=== PATIENT | male | born 1960 | race Caucasian/White ===

== ENCOUNTER 2024-02-15 08:16 | Emergency (ER) | payer MEDICAID ==
[~2024-02-15] VITALS: Ht 185.4 cm; Wt 79.5 kg
[2024-02-15 08:19] VITALS: TEMP 97.8
[2024-02-15] MEDS ORDERED: PRED20TA PO (10:01)
[2024-02-15] MEDS ORDERED: PERM60CR19 TOP (10:01)
[2024-02-15] MEDS ORDERED: LISI10TA27 PO (10:03)
[2024-02-15 10:12] VITALS: BP 168/107; PULSE 89; RESP 16; O2SAT 98
== END 2024-02-15 10:14 | disposition home or self-care (01) ==
LOC: ER 08:16
DX: L50.0 Allergic urticaria (principal); B86 Scabies; Z79.899 Other long term (current) drug therapy
CPT/HCPCS: 99283

== ENCOUNTER 2024-02-25 06:22 | Emergency (ER) | payer MEDICAID ==
[~2024-02-25] VITALS: Ht 185.4 cm; Wt 69.6 kg
[~2024-02-25 06:22] MED LIST: LISI10TA27 PO; PERM60CR19 TOP
[2024-02-25 08:27] VITALS: BP 133/91; PULSE 98; RESP 16; TEMP 98.9; O2SAT 98
== END 2024-02-25 08:28 | disposition home or self-care (01) ==
LOC: ER 06:23
DX: R21 Rash and other nonspecific skin eruption (principal); Z79.899 Other long term (current) drug therapy
CPT/HCPCS: 99281

== ENCOUNTER 2024-07-13 08:24 | Emergency (ER) | payer MEDICAID ==
[~2024-07-13] VITALS: Ht 185.4 cm; Wt 74.2 kg
[~2024-07-13 08:24] MED LIST changes: -PERM60CR19 TOP
[2024-07-13] MEDS ORDERED: LISI10TA27 PO (09:31)
[2024-07-13] MEDS: lisinopril 10 MG tablet PO ONE (09:48)
[2024-07-13 09:50] VITALS: BP 141/101; PULSE 110; RESP 16; TEMP 98; O2SAT 98
== END 2024-07-13 09:51 | disposition home or self-care (01) ==
LOC: ER 08:25
DX: I10 Essential (primary) hypertension (principal); Z76.0 Encounter for issue of repeat prescription
CPT/HCPCS: 99281

== ENCOUNTER 2024-07-22 14:46 | Emergency (ER) | payer MEDICAID ==
[~2024-07-22] VITALS: Ht 185.4 cm; Wt 78.8 kg
[2024-07-22] MEDS: dexamethasone sod phosphate 10mg/ml inj IM STA (20:19)
[2024-07-22] MEDS ORDERED: ALBU8HFA INH (20:21)
[2024-07-22] MEDS ORDERED: PRED20TA PO (20:21)
[2024-07-22] MEDS: ketorolac trometh 30MG/ML vial 30 MG/ML VIAL IM ONE (20:21)
[2024-07-22] MEDS ORDERED: PROM25TA14 PO (20:21)
[2024-07-22 20:30] VITALS: BP 110/72; PULSE 99; RESP 20; TEMP 99; O2SAT 98
== END 2024-07-22 20:32 | disposition home or self-care (01) ==
LOC: ER 14:47
DX: B34.9 Viral infection, unspecified (principal); Z20.822 Contact with and (suspected) exposure to COVID-19
CPT/HCPCS: 36415; 71045; 87502; 87503; 87811; 96372; 99284; J1100; J1885

== ENCOUNTER 2024-10-04 18:11 | Emergency (ER) | payer MEDICAID ==
[~2024-10-04] VITALS: Ht 162.6 cm; Wt 98.8 kg
[2024-10-04 18:12] VITALS: BP 133/78; PULSE 112; RESP 16; TEMP 98.1; O2SAT 100
== END 2024-10-04 21:39 | disposition left against medical advice (07) ==
LOC: ER 18:11
DX: R31.9 Hematuria, unspecified (principal); Z53.21 Procedure and treatment not carried out due to patient leaving prior to being seen by health care provider

== ENCOUNTER 2024-10-05 05:43 | Emergency (ER) | payer MEDICAID ==
[~2024-10-05] VITALS: Ht 185.4 cm; Wt 63.0 kg
[2024-10-05 05:48] VITALS: BP 132/92; PULSE 98; RESP 18; TEMP 97.7; O2SAT 99
[2024-10-05 06:59] LABS: BILIRUBIN,URINE MODERATE (Neg); CLARITY,URINE CLOUDY (Clear); COLOR,URINE BROWN (Yellow); GLUCOSE, URINE NEGATIVE (Neg); KETONES,URINE TRACE mg/dl (Neg); LEUKOCYTE ESTERASE ,URINE SMALL (Neg); OCCULT BLOOD,URINE LARGE (Neg); PH,URINE 6.5 (4.8-8.0); PROTEIN,URINE >=300 mg/dl (Neg)
[2024-10-05 07:06] LABS: UA COLLECTION TYPE CLN CATCH MIDSTREAM
[2024-10-05 07:07] LABS: NITRITES, URINE NEGATIVE (Neg)
[2024-10-05 07:08] LABS: BACTERIA,URINE FEW /HPF (Neg); MUCUS STRANDS FEW /LPF (Neg); RBC,URINE TNTC /HPF (0-2); SQUAMOUS EPITHELIAL CELL,UR NONE SEEN /LPF (FEW)
== END 2024-10-05 08:19 | disposition left against medical advice (07) ==
LOC: ER 05:43
DX: R31.9 Hematuria, unspecified (principal); Z53.21 Procedure and treatment not carried out due to patient leaving prior to being seen by health care provider
CPT/HCPCS: 81001; 87088